=== PATIENT | male | born 1985 | race Hispanic/Latino ===

== ENCOUNTER 2021-02-22 11:53 | Emergency (ER) | payer OTHER ==
[~2021-02-22] VITALS: Ht 167.6 cm; Wt 77.2 kg
[2021-02-22] MEDS ORDERED: IBUPROFEN IB200 MG PO (12:32)
[2021-02-22] MEDS ORDERED: ULTRAM 50MG50 MG PO (12:32)
== END 2021-02-22 12:55 | disposition home or self-care (01) ==
LOC: FSED 12:05
DX: S93.402A Sprain of unspecified ligament of left ankle, initial encounter (principal); W01.0XXA Fall on same level from slipping, tripping and stumbling without subsequent striking against object, initial encounter; Y93.01 Activity, walking, marching and hiking
CPT/HCPCS: 99283

== ENCOUNTER 2022-02-23 11:37 | Emergency (ER) | payer OTHER ==
[~2022-02-23] VITALS: Ht 167.6 cm; Wt 77.1 kg
[~2022-02-23 11:37] MED LIST: IBUPROFEN IB200 MG PO; ULTRAM 50MG50 MG PO
[2022-02-23] MEDS ORDERED: KETOROLAC TROMETHAMINE 30 MG/ML VIAL IM STA (12:14)
[2022-02-23] MEDS ORDERED: KETOROLAC TROMETHAMINE 30 MG/ML VIAL ONE (13:08)
[2022-02-23] MEDS ORDERED: NAPROSYN500 MG PO (13:18)
[2022-02-23] MEDS ORDERED: PREDNISONE20 MG PO (13:18)
[2022-02-23] MEDS ORDERED: DEXAMETHASONE SOD PHOS 10 MG/1 ML VIAL IM ONE (13:30)
[2022-02-23] MEDS ORDERED: DEXAMETHASONE SOD PHOS INJ 4 MG/ML SDV ONE (13:34)
[2022-02-23] MEDS ORDERED: ZYLOPRIM100 MG PO (13:41)
== END 2022-02-23 13:53 | disposition home or self-care (01) ==
LOC: FSED 12:00
DX: M79.672 Pain in left foot (principal); M79.675 Pain in left toe(s); M10.9 Gout, unspecified
CPT/HCPCS: 36415; 84550; 99283; J1100; J1885

== ENCOUNTER 2022-04-03 11:41 | Emergency (ER) | payer OTHER ==
[~2022-04-03] VITALS: Ht 167.6 cm; Wt 74.4 kg
[~2022-04-03 11:41] MED LIST changes: +NAPROSYN500 MG PO; +PREDNISONE20 MG PO; +ZYLOPRIM100 MG PO
[2022-04-03] MEDS ORDERED: DEXAMETHASONE SOD PHOS 10 MG/1 ML VIAL IM ONE (12:15)
[2022-04-03] MEDS ORDERED: HYDROCODONE/APAP 5MG-325MG TAB PO ONE (12:15)
[2022-04-03] MEDS ORDERED: KETOROLAC TROMETHAMINE 60 MG/2 ML VIAL IM ONE (12:15)
[2022-04-03] MEDS ORDERED: ALLOPURINOL100 MG PO (12:19)
[2022-04-03] MEDS ORDERED: PREDNISONE20 MG PO (12:19)
[2022-04-03] MEDS ORDERED: NAPROSYN500 MG PO (12:19)
[2022-04-03] MEDS ORDERED: DEXAMETHASONE SOD PHOS INJ 4 MG/ML SDV ONE (12:27)
[2022-04-03] MEDS ORDERED: HYDROCODONE/APAP 5MG-325MG TAB ONE (12:27)
[2022-04-03] MEDS ORDERED: KETOROLAC TROMETHAMINE 30 MG/ML VIAL ONE (12:27)
== END 2022-04-03 12:34 | disposition home or self-care (01) ==
LOC: FSED 12:04
DX: M79.675 Pain in left toe(s) (principal); M10.9 Gout, unspecified
CPT/HCPCS: 96372; 99283; J1100; J1885

== ENCOUNTER 2022-12-03 07:52 | Emergency (ER) | payer OTHER ==
[~2022-12-03] VITALS: Ht 167.6 cm; Wt 76.4 kg
[~2022-12-03 07:52] MED LIST changes: +ALLOPURINOL100 MG PO
[2022-12-03] MEDS ORDERED: ONDANSETRON HCL INJ 2MG/ML 2ML 2 MG/ML VIAL IV STA (08:11)
[2022-12-03] MEDS ORDERED: Morphine 4mg INJECTION 4 MG/ML INJ IV ONE (08:15)
[2022-12-03] MEDS ORDERED: ONDANSETRON HCL INJ 2MG/ML 2ML 2 MG/ML VIAL ONE (08:20)
[2022-12-03] MEDS ORDERED: Morphine 4mg INJECTION 4 MG/ML INJ ONE (08:20)
[2022-12-03] MEDS ORDERED: SODIUM CHLORIDE 0.9% 1000ML 1,000 ML ONE (08:20)
[2022-12-03] MEDS ORDERED: SODIUM CHLORIDE 0.9% 1000ML 1,000 ML IV STA (08:25)
[2022-12-03] MEDS ORDERED: KETOROLAC TROMETHAMINE 30 MG/ML VIAL ONE (09:17)
[2022-12-03] MEDS ORDERED: KETOROLAC TROMETHAMINE 30 MG/ML VIAL IV STA (09:17)
[2022-12-03] MEDS ORDERED: FLOMAX0.4 MG PO (09:24)
[2022-12-03] MEDS ORDERED: KETOROLAC TROME10 MG PO (09:24)
[2022-12-03] MEDS ORDERED: ONDANSETRON ODT4 MG PO (09:24)
== END 2022-12-03 09:32 | disposition home or self-care (01) ==
LOC: FSED 08:03
DX: R10.31 Right lower quadrant pain (principal); N13.2 Hydronephrosis with renal and ureteral calculous obstruction; R11.2 Nausea with vomiting, unspecified; K76.9 Liver disease, unspecified; M10.9 Gout, unspecified
CPT/HCPCS: 74176; 80048; 80076; 81003; 85025; 96374; 96375; 99284; J1885; J2270; J2405; J7030